=== PATIENT | male | born 1975 | race Caucasian/White ===

== ENCOUNTER 2023-12-25 10:58 | Emergency (ER) | payer BC ==
[~2023-12-25] VITALS: Ht 177.8 cm; Wt 90.7 kg
[2023-12-25 11:10] VITALS: BP_SYST 134; PULSE 105; RESP 18; TEMP 97.6; O2SAT 98
[2023-12-25] MEDS: DIPHTH,PERTUSS(ACELL),TET VAC 0.5 ML VIAL (Tdap) I.M. ONE (12:13)
[2023-12-25] MEDS ORDERED: ACET-2634 PO (13:36)
[2023-12-25 13:41] VITALS: BP_SYST 134; PULSE 105; RESP 18; TEMP 97.6; O2SAT 98
== END 2023-12-25 13:43 | disposition home or self-care (01) ==
LOC: SED 10:58
DX: S80.02XA Contusion of left knee, initial encounter (principal); S00.83XA Contusion of other part of head, initial encounter; S20.219A Contusion of unspecified front wall of thorax, initial encounter; M47.812 Spondylosis without myelopathy or radiculopathy, cervical region; Z23 Encounter for immunization; V29.888A Rider (driver) (passenger) of other motorcycle injured in other specified transport accidents, initial encounter; Y93.89 Activity, other specified; Y92.89 Other specified places as the place of occurrence of the external cause; Y99.8 Other external cause status
CPT/HCPCS: 70450-TC; 71045; 72125-TC; 73560; 90715; 99285